=== PATIENT | male | born 1945 | race Caucasian/White ===

== ENCOUNTER 2017-04-24 07:31 | Outpatient (CLI) | END 2017-04-24 07:32 | disposition short-term general hospital (02) | LOC: AMBL 07:31 | PROVIDERS: ATTEND Internal Medicine Geriatric Medicine | DX: R50.9 Fever, unspecified (principal); R25.1 Tremor, unspecified; R00.0 Tachycardia, unspecified ==

== ENCOUNTER 2017-06-24 03:48 | Outpatient (CLI) | END 2017-06-24 03:49 | LOC: AMBL 03:48 | PROVIDERS: ATTEND Emergency Medicine | DX: R50.9 Fever, unspecified (principal); R05 Cough; R09.89 Other specified symptoms and signs involving the circulatory and respiratory systems; R09.02 Hypoxemia ==

== ENCOUNTER 2017-08-15 14:38 | Outpatient (CLI) | END 2017-08-15 14:39 | disposition short-term general hospital (02) | LOC: AMBL 14:38 | PROVIDERS: ATTEND Internal Medicine Geriatric Medicine | DX: R50.9 Fever, unspecified (principal); R39.198 Other difficulties with micturition ==

== ENCOUNTER 2017-09-22 02:20 | Outpatient (CLI) | END 2017-09-22 02:21 | disposition home or self-care (01) | LOC: AMBL 02:20 | PROVIDERS: ATTEND Internal Medicine Geriatric Medicine | DX: R26.2 Difficulty in walking, not elsewhere classified (principal); R25.1 Tremor, unspecified ==

== ENCOUNTER 2017-10-23 15:32 | Outpatient (CLI) | END 2017-10-23 15:33 | disposition short-term general hospital (02) | LOC: AMBL 15:32 | PROVIDERS: ATTEND Internal Medicine | DX: R50.9 Fever, unspecified (principal); R35.0 Frequency of micturition; C34.90 Malignant neoplasm of unspecified part of unspecified bronchus or lung ==

== ENCOUNTER 2017-11-14 23:09 | Outpatient (CLI) | END 2017-11-14 23:10 | disposition short-term general hospital (02) | LOC: AMBL 23:09 | PROVIDERS: ATTEND Emergency Medicine | DX: R06.02 Shortness of breath (principal); R06.2 Wheezing; R00.0 Tachycardia, unspecified; I49.3 Ventricular premature depolarization ==